=== PATIENT | male | born 1980 | race Caucasian/White ===

== ENCOUNTER 2023-01-04 19:58 | Emergency (ER) | payer OTHER, SELFPAY ==
[2023-01-04] VITALS (9 sets, daily range): BP systolic 101–123; BP diastolic 40–73; PULSE 65–160; RESP 11–20; TEMP 36.6; O2SAT 94–100; BMI 31.9
--- NOTE | 2023-01-04 | ECG_ITS ---
Test Reason : AFIB Blood Pressure : / mmHG Vent. Rate : 127 BPM Atrial Rate : 000 BPM P-R Int : 000 ms QRS Dur : 092 ms QT Int : 328 ms P-R-T Axes : 000 -41 010 degrees QTc Int : 476 ms Atrial fibrillation with rapid ventricular response Left axis deviation Nonspecific ST abnormality Abnormal ECG No previous ECGs available Referred By: Generic ED Physician Electronically Signed By:VIRIDIANA MONTERO
[2023-01-04 20:23] LABS: MANUAL DIFF FLAG NO
--- NOTE | 2023-01-04 20:25 | MHC.EDTECH ---
This Tech assumed care of this PT upon arrival. PT changed into hospital gown EKG completed and viewed by Attending MD, Pt placed on outsole beveler and Bloodwork drawn and sent to labs
[2023-01-04 20:31] LABS: Basophils Absolute Auto 0.1 X10*3/uL (0.0-0.2); Basophils Percent Auto 0.6 % (0-2); Eosinophils Absolute Auto 0.2 X10*3/uL (0.0-0.4); Eosinophils Percent Auto 2.2 % (0-4); Hematocrit 49.8 % (42.0-52.0); Hemoglobin 17.2 g/dl (14.0-18.0); Imm Gran Abs Auto 0.03 X10*3/uL (0.00-0.03); Imm Gran Pct Auto 0.3 % (0.0-0.4); Lymphocytes Absolute Auto 2.5 X10*3/uL (1.2-4.9); Lymphocytes Percent Auto 28.1 % (20-40); Mean Corpuscular HGB Conc 34.5 g/dl (31.0-36.0); Mean Corpuscular Hemoglobin 28.4 pg (27.0-33.0); Mean Corpuscular Volume 82.3 fL (80.0-98.0); Mean Platelet Volume 10.2 fL (9.4-12.4); Monocytes Percent Auto 11.2 % (2-11); Neutrophils Absolute Auto 5.1 x10*3/uL (2.0-8.3); Neutrophils Percent Auto 57.6 % (45-73); Platelet Count 199 X10*3/uL (160-400); Red Blood Count 6.05 X10*6/uL (4.60-5.80); Red Cell Distribution Width 12.9 % (11.0-16.0); White Blood Count 8.8 X10*3/uL (4.8-10.8)
[2023-01-04 20:54] LABS: Alanine Aminotransferase 38 U/L (0-40); Alkaline Phosphatase 66 U/L (39-117); Anion Gap 16 (12-20); Aspartate Amino Transferase 32 U/L (5-37); Bilirubin Total 0.3 mg/dL (0.0-1.0); Blood Urea Nitrogen 19 mg/dL (9-16); Carbon Dioxide 21 mmol/L (22-29); Chloride 107 mmol/L (96-108); Estimated Glomerular Filt Rate > 60; Glucose Random 99 mg/dL (60-115); Potassium 3.8 mmol/L (3.3-5.1); Sodium 140 mmol/L (135-145); Total Protein 6.9 g/dL (6.5-8.0)
[2023-01-04 21:00] LABS: INTERNATIONAL NORM RATIO 0.9 (0.9-1.1); Prothrombin Time 11.2 SEC (11.1-13.3)
--- NOTE | 2023-01-04 21:03 | ED.ARRPALP ---
HPI - Arrhythmia/Palpitations General Chief Complaint: Arrhythmia/Palpitations Stated Complaint: FLUTTERING IN CHEST Time Seen by Provider: 01/04/23 20:44 Source: patient Mode of arrival: ambulatory Limitations: no limitations History of Present Illness HPI narrative: 42-year-old male with history of paroxysmal atrial fibrillation not currently on any medications presents with fluttering in his chest around 730 this evening. He has had some mild intermittent dizziness. He called 911. Found to be in AFib with rapid ventricular response. He was given Cardizem 22 mg IV which did slow down his heart rate. Currently he feels slightly lightheaded and a little bit more fluttering in his chest. Denies any chest pain or shortness of breath. His symptoms are moderate nature. There is no clear relieving or exacerbating features. He has had similar symptoms in the past. In the past, they attempted cardioversion chemically without success. They are going to electrically cardiovert the patient and he converted with propofol. He would like to do the same thing again Related Data Previous Rx's Medication Instructions Recorded apixaban 5 mg tablet 5 mg PO BID #60 tabs 01/04/23 metoprolol tartrate 25 mg tablet 25 mg PO BID 30 days #60 tabs 01/04/23 Allergies Allergy/AdvReac Type Severity Reaction Status Date / Time No Known Allergies Allergy Verified 01/04/23 20:21 Review of Systems Review of Systems: CONSTITUTIONAL: Denies weight loss, fever and chills. HEENT: Denies changes in vision and hearing. RESPIRATORY: Denies SOB and cough. CV: + palpitations no CP. GI: Denies abdominal pain, nausea, vomiting and diarrhea. : Denies dysuria and urinary frequency. MSK: Denies myalgia and joint pain. SKIN: Denies rash and pruritus. NEUROLOGICAL: Denies headache and syncope. PSYCHIATRIC: Denies recent changes in mood. Denies anxiety and depression. All other ROS are negative unless in [facility] Narrative: Paroxysmal atrial fibrillation Social History Social History Alcohol intake: never Smoked in Last 30 Days: No Use of substances other than those prescribed or required for medical reasons: No Advance Directives: No Advance Directives Information Provided: Yes Physical Exam Vital Signs: Vital Signs: Last Vital Signs Temp 97.8 F 01/04/23 21:52 Pulse 65 01/04/23 22:07 Resp 11 L 01/04/23 22:07 BP 101/64 01/04/23 22:07 Pulse Ox 97 01/04/23 22:07 O2 Del Method Room Air 01/04/23 22:07 O2 Flow Rate 5 01/04/23 21:52 FiO2 27 01/04/23 21:42 Oxygen Flow Rate 5 01/04/23 21:47 BMI result Body Mass Index 31.9 GEN: Well developed, no acute distress, alert, oriented HEENT: Normocephalic, atraumatic, normal external ears, nose appears normal, no oropharyngeal edema or exudates Eyes: Normal to appearance Neck: Supple, no lymphadenopathy Respiratory: Talks in complete sentences, no respiratory distress, clear to auscultation bilaterally Cardiovascular: Tachycardic, irregularly irregular Abdomen: Soft, nontender, nondistended, no guarding, no rebound Back: No CVA tenderness Extremities: No clubbing cyanosis or edema Neurologic: No focal neurologic deficits, cranial nerves 2-12 intact, strength is 5/5 bilaterally Skin: No rash Course Reevaluation(s) Reevaluation #1: RICHAR<sub>2</sub>DS<sub>2</sub>-VASc Score for Atrial Fibrillation Stroke Risk from [employer].Original on 01/04/2023 All calculations should be rechecked by clinician prior to use RESULT SUMMARY: 0 points Stroke risk was 0.2% per year in >90,000 patients (the [place] Atrial Fibrillation Cohort Study) and 0.3% risk of stroke/TIA/systemic embolism. One recommendation suggests a 0 score for men or 1 score for women (no clinical risk factors) is ?low? risk and may not require anticoagulation; a 1 score for men or 2 score for women is ?low-moderate? risk and should consider antiplatelet or anticoagulation; and a score >= for men or >= for women is ?moderate-high? risk and should otherwise be an anticoagulation candidate. INPUTS: Age ?> 0 = <65 Sex ?> 0 = Male CHF history ?> 0 = No Hypertension history ?> 0 = No Stroke/TIA/thromboembolism history ?> 0 = No Vascular disease history (prior [place], peripheral artery disease, or aortic plaque) ?> 0 = No Diabetes history ?> 0 = No Reevaluation #2: Patient remains in sinus rhythm post conversion. He has received Eliquis and metoprolol. He will follow up with Cardiology. Time: 22:29 Medications Administered Discontinued Medications Generic Name Dose Route Start Last Admin Trade Name Rose PRN Reason Stop Dose Admin Apixaban 5 mg 01/04/23 21:18 01/04/23 21:27 Apixaban 5 Mg Tablet PO 01/04/23 21:19 5 mg ONCE ONE Administration Metoprolol Tartrate 25 mg 01/04/23 21:18 01/04/23 21:27 Metoprolol Tartrate 25 Mg Tablet PO 01/04/23 21:19 25 mg ONCE ONE Administration Protocol Propofol 100 mg 01/04/23 21:18 01/04/23 21:40 Propofol 200 Mg/20 Ml Vial IVPUSH 01/04/23 21:19 100 mg ONCE ONE Administration Medical Decision Making Medical Decision Making [facility] Narrative: Patient presents with atrial fibrillation. He remembers the time that the symptoms started which is approximately 730 this evening. He is requesting electrical cardioversion. I will contact the general warehouse associate to make sure that we are giving appropriate consisting care. He is not currently on prophylactic medications. If we are able to convert him, patient will likely need metoprolol. His chads score is 0 in does not apparently warrant anticoagulation at this time differential diagnosis includes SVT, AFib, a flutter, other cardiac dysrhythmia Differential Diagnosis Differential Diagnoses: The differential diagnosis associated with the presentation includes (See above) Admission/Observation Consideration of admission/observation: Escalation of care including admission/observation considered Consult Healthcare Provider Management of the patient was discussed with: Electronic Assembler Group Leader (Cardiology) Lab Data [facility] Lab Attestation statement: I reviewed the patient's lab results. 01/04/23 20:19 01/04/23 20:19 Labs: Lab Results 01/04/23 01/04/23 01/04/23 Range/Units 20:19 20:19 20:19 WBC 8.8 (4.8-10.8) X10*3/uL RBC 6.05 H (4.60-5.80) X10*6/uL Hgb 17.2 (14.0-18.0) g/dl Hct 49.8 (42.0-52.0) % MCV 82.3 (80.0-98.0) fL MCH 28.4 (27.0-33.0) pg MCHC 34.5 (31.0-36.0) g/dl RDW 12.9 (11.0-16.0) % Plt Count 199 (160-400) X10*3/uL MPV 10.2 (9.4-12.4) fL Immature Gran % (Auto) 0.3 (0.0-0.4) % Neut % (Auto) 57.6 (45-73) % Lymph % (Auto) 28.1 (20-40) % [place] % (Auto) 11.2 H (2-11) % Eos % (Auto) 2.2 (0-4) % Baso % (Auto) 0.6 (0-2) % Lymph # (Auto) 2.5 (1.2-4.9) X10*3/uL [place] # (Auto) 1.0 (0.1-1.2) X10*3/uL Eos # (Auto) 0.2 (0.0-0.4) X10*3/uL Baso # (Auto) 0.1 (0.0-0.2) X10*3/uL Abs Immat Gran (auto) 0.03 (0.00-0.03) X10*3/uL Absolute Neuts (auto) 5.1 (2.0-8.3) x10*3/uL Absolute Nucleated RBC 0.000 (0.0-0.012) X10*3/uL Nucleated RBC % (auto) 0.0 (0.0-0.2) /100WBC PT 11.2 (11.1-13.3) SEC INR 0.9 (0.9-1.1) Sodium (135-145) mmol/L Potassium (3.3-5.1) mmol/L Chloride (96-108) mmol/L Carbon Dioxide (22-29) mmol/L Anion Gap (12-20) BUN (9-16) mg/dL Creatinine (0.5-1.4) mg/dL Estim Creat Clear Calc Estimated GFR Random Glucose (60-115) mg/dL Calcium (8.4-10.2) mg/dL Total Bilirubin (0.0-1.0) mg/dL AST (5-37) U/L ALT (0-40) U/L Alkaline Phosphatase (39-117) U/L Troponin I High Sens < 2.7 (<3.5-35.0) ng/L Total Protein (6.5-8.0) g/dL Albumin (3.5-5.0) g/dL 01/04/23 Range/Units 20:19 WBC (4.8-10.8) X10*3/uL RBC (4.60-5.80) X10*6/uL Hgb (14.0-18.0) g/dl Hct (42.0-52.0) % MCV (80.0-98.0) fL MCH (27.0-33.0) pg MCHC (31.0-36.0) g/dl RDW (11.0-16.0) % Plt Count (160-400) X10*3/uL MPV (9.4-12.4) fL Immature Gran % (Auto) (0.0-0.4) % Neut % (Auto) (45-73) % Lymph % (Auto) (20-40) % [place] % (Auto) (2-11) % Eos % (Auto) (0-4) % Baso % (Auto) (0-2) % Lymph # (Auto) (1.2-4.9) X10*3/uL [place] # (Auto) (0.1-1.2) X10*3/uL Eos # (Auto) (0.0-0.4) X10*3/uL Baso # (Auto) (0.0-0.2) X10*3/uL Abs Immat Gran (auto) (0.00-0.03) X10*3/uL Absolute Neuts (auto) (2.0-8.3) x10*3/uL Absolute Nucleated RBC (0.0-0.012) X10*3/uL Nucleated RBC % (auto) (0.0-0.2) /100WBC PT (11.1-13.3) SEC INR (0.9-1.1) Sodium 140 (135-145) mmol/L Potassium 3.8 (3.3-5.1) mmol/L Chloride 107 (96-108) mmol/L Carbon Dioxide 21 L (22-29) mmol/L Anion Gap 16 (12-20) BUN 19 H (9-16) mg/dL Creatinine 0.83 (0.5-1.4) mg/dL Estim Creat Clear Calc 135.0 Estimated GFR > 60 Random Glucose 99 (60-115) mg/dL Calcium 9.0 (8.4-10.2) mg/dL Total Bilirubin 0.3 (0.0-1.0) mg/dL AST 32 (5-37) U/L ALT 38 (0-40) U/L Alkaline Phosphatase 66 (39-117) U/L Troponin I High Sens (<3.5-35.0) ng/L Total Protein 6.9 (6.5-8.0) g/dL Albumin 4.0 (3.5-5.0) g/dL Independent Interpretation I performed an independent interpretation of an: EKG (Atrial fibrillation with heart rate of 127, no acute ST elevations depressions, QTC 476 milliseconds, left axis deviation) Interpretation: Post cardioversion EKG, normal sinus rhythm heart rate 66, left axis deviation, no acute ST elevations or depressions. Independent Historian Clinical information obtained from an independent historian. History obtained from or confirmed by: EMS Prescription Management I considered prescription management with: Other (Propofol, metoprolol) Chronic Conditions Patient?s care impacted by: Other (Paroxysmal atrial fibrillation) Procedures Procedure Narrative Procedure Narrative: Electrical cardioversion: Pacer pads applied anterior and posteriorly. See procedural sedation noted as well. Two hundred joules applied for atrial fibrillation. Post cardioversion rhythm normal sinus rhythm. No immediate complications from procedure. Post procedural medications include metoprolol 25 mg orally and Eliquis 5 mg. Procedural Sedation Indication: other (Cardioversion) ASA Class: I Mallampati Class: I Time of Last PO Intake: 16:00 Preparation: retail sales associate applied, pulse oximeter, capnometry used, supplemental O2 applied, suction/airway equipment at bedside and IV secured IV Propofol dose (mg): 100 Patient Tolerated Procedure: well and no complications Complications: none Critical Care Time Critical Care Time Critical Care Time: Yes Total Critical Care Time: 35 Attestation: Due to a high probability of clinically significant, life threatening deterioration, the patient required my highest level of preparedness to intervene emergently and I personally spent this critical care time directly and personally managing the patient. This critical care time included obtaining a history; examining the patient; pulse oximetry; ordering and review of studies; arranging urgent treatment with development of a management plan; evaluation of patient's response to treatment; frequent reassessment; and, discussions with other providers. This critical care time was performed to assess and manage the high probability of imminent, life-threatening deterioration that could result in multi-organ failure. It was exclusive of separately billable procedures and treating other patients and teaching time. Discharge Plan Discharge Clinical Impression: Atrial fibrillation Patient Disposition: Home, Self-Care Instructions: A-fib (Atrial Fibrillation) (ED), Blood Thinners (ED), Cardioversion (DC), Procedural Sedation (ED) Prescriptions: New metoprolol tartrate 25 mg tablet 25 mg PO BID 30 Days Qty: 60 0RF apixaban 5 mg tablet 5 mg PO BID Qty: 60 0RF Referrals: Tom Jain MD [Physician] - 1 week
[2023-01-04 21:09] LABS: Troponin-I High Sensitivity < 2.7 ng/L (<3.5-35.0)
[2023-01-04] MEDS: Metoprolol Tartrate 25 MG TABLET PO (21:27)
[2023-01-04] MEDS: Apixaban 5 MG TABLET PO (21:27)
[2023-01-04] MEDS: propofoL 200 MG/20 ML VIAL 100 MG IVPUSH (21:40)
--- NOTE | 2023-01-04 21:46 | ECG_ITS ---
Test Reason : POST CARDIOVERT Blood Pressure : / mmHG Vent. Rate : 066 BPM Atrial Rate : 066 BPM P-R Int : 170 ms QRS Dur : 094 ms QT Int : 382 ms P-R-T Axes : 067 -39 035 degrees QTc Int : 400 ms Normal sinus rhythm Left axis deviation Abnormal ECG When compared with ECG of 04-JAN-2023 20:08, Sinus rhythm has replaced Atrial fibrillation Vent. rate has decreased BY 61 BPM Referred By: Krishna Diop Electronically Signed By:VIRIDIANA MONTERO
--- NOTE | 2023-01-04 21:54 | PC.NURSE ---
PT CARDIOVERTED BY MD DUPONT @21:40. CONSENT GIVEN AND SIGNED BY PT, TIME OUT DONE, RESPIRATORY AT BEDSIDE W/ SUCTION AND CAPNOGRAPHY. MD DUPONT ADMINISTERED 100MG PROPOFOL. PT RESPONDED WELL TO CARDIOVERSION. NSR @21:41 S/P CARDIOVERSION. PT SLEEPY BUT ALERT AND RESPONDING TO QUESTIONS SPEAKING CLEAR FULL SENTENCES POST PROCEDURE. VITAL SIGNS DOCUMENTED AND PROCEDURAL WORKSHEET DONE . ON GAME TESTER MAINTAINING AIRWAY NO ISSUES
--- NOTE | 2023-01-04 22:27 | PC.NURSE ---
pt talking on phone speaking clear full sentences in no apparent respiratory or physical distress. on cardiac catheterization technologist NSR HR 67. pt waiting for discharge from provider.
== END 2023-01-04 22:51 | disposition home or self-care (01) ==
PROVIDERS: Emergency Provider Emergency Medicine; PCP Hospitalist
DX: I48.92 Unspecified atrial flutter (principal); I48.91 Unspecified atrial fibrillation; Z79.899 Other long term (current) drug therapy
CPT/HCPCS: 36415; 80053; 84484; 85025; 85610; 92960; 93005; 96374; 99285